=== PATIENT | female | born 1970 | race Hispanic/Latino ===

== ENCOUNTER 2017-10-18 03:28 | Outpatient (CLI) | payer OTHER | END 2017-10-18 03:29 | disposition home or self-care (01) | LOC: BICMRI 03:28 | PROVIDERS: ATTEND Specialist | DX: M54.2 Cervicalgia (principal); M47.892 Other spondylosis, cervical region; M25.78 Osteophyte, vertebrae; M50.20 Other cervical disc displacement, unspecified cervical region | CPT/HCPCS: 72141 ==

== ENCOUNTER 2019-02-12 18:32 | Emergency (ER) | payer SELFPAY ==
[2019-02-12] MEDS ORDERED: Ketorolac Tromethamine 60 MG/2 ML VIAL ONE (20:16)
--- NOTE | 2019-02-12 20:43 | CT ---
FExam: CT thoracic spine without contrast Provided clinical history: Back pain FINDINGS: Thoracic alignment appears normal. Vertebral body heights appear preserved. Thoracic disc degenerativ e changes are seen. No paravertebral soft tissue abnormality is evident. IMPRESSION: No evidence for fracture or subluxation.
--- NOTE | 2019-02-12 21:00 | CT ---
CERVICAL SPINE CT WITHOUT CONTRAST: History: Pain. Comparison: None. FINDINGS: No craniocervical disassociation. Intact odontoid process. Lateral masses of C1 and C2 articulate anabel ropriately. Cervical spine vertebral body height is maintained. No fracture. Soft tissue neck structures are unremarkable. No retropharyngeal or prevertebral soft tissue swelling . Upper mediastinum and lung apices are unremarkable. Limited evaluation of the contents of the central spinal canal and neural foramina due to technique. C2-3: No significant central canal stenosis or foraminal narrowing. C3-4: Minimal broad based disc bulge without significant central canal stenosis or foraminal narrowin g. C4-5: Broad based disc bulge without significant central canal stenosis. Neural foramina are patent. C5-6: There is a central/left paracentral disc bulge. There is at least mild central canal stenosis. Mild bilateral foraminal narrowing. e C6-7: No significant central canal stenosis or foraminal narrowing. C7-T1: No significant central canal stenosis or foraminal narrowing. IMPRESSION: Degenerative disc disease at C5-6. Better interrogation with a cervical spine MRI is recommended on a non-emergent basis. POS: PPP
== END 2019-02-12 21:12 | disposition home or self-care (01) ==
LOC: ERS 18:32
DX: M48.02 Spinal stenosis, cervical region (principal); M62.830 Muscle spasm of back
CPT/HCPCS: 72125; 72128; 96372; J1885

== ENCOUNTER 2019-03-29 12:03 | Outpatient (CLI) | payer BC ==
--- NOTE | 2019-03-29 15:10 | MRI ---
THORACIC SPINE MRI NONCONTRAST: INDICATION: Thoracic spine pain. FINDINGS: Vertebral body heights and alignment are maintained. No acute compression fracture or marrow edema. Disk space heights are relatively well preserved. Intrinsic T1 hyperintensity is seen within the lo w thoracic spine indicates interosseous hemangioma. At the T1-2 level, there is a mild disk bulge with effacement of the ventral thecal sac. Slight vent ral cord effacement without direct cord contact noted. Otherwise, within the thoracic spine levels, there is no significant central canal or neural foramina l stenosis. There is a mild anterior, chronic wedge deformity involving the T5 vertebral segment with slight ante rior height loss. This is at site of mild focal kyphosis. Evaluation of the thoracic spinal cord reveals appropriate caliber and signal intensity. Incidental note of a small T2 hyperintensity of the right kidney which is incompletely visualized on the basis of this exam. The visualized transverse diameters are approximately 9 mm. No acute paraspinal soft tissue edema. IMPRESSION: 1. Mild disk bulge at T1-2 with slight effacement of the ventral aspect of the thoracic spinal cord without significant cord deformity, or obvious intramedullary signal alteration. 2. Mild chronic anterior height loss of T5 vertebral body. 3. Intraosseous hemangioma of T10 vertebral body. 4. Small, subcentimeter partially imaged T2 hyperintensity of the right kidney. Consider followup w ith renal ultrasound as a conservative measure to fully visualize this finding. POS: TPC
== END 2019-03-29 12:04 | disposition home or self-care (01) ==
LOC: BICMRI 12:03
PROVIDERS: ATTEND Psychiatry & Neurology Neurology
DX: M54.6 Pain in thoracic spine (principal); M51.24 Other intervertebral disc displacement, thoracic region; D18.09 Hemangioma of other sites
CPT/HCPCS: 72146

== ENCOUNTER 2019-04-02 01:19 | Outpatient (CLI) | payer BC ==
[2019-04-02 17:44] LABS: #Eosinphils 0.1 thou/uL (0.0-0.7); #Lymphocytes 2.6 thou/uL (1.20-3.40); #Monocytes 0.4 thou/uL (0.11-0.59); #Neutrophils 4.5 thou/uL (1.40-6.50); %Basophils 0.6 % (0.0-1.0); %Eosinophils 1.4 % (0.0-10.0); %Lymphocytes 33.6 % (21.0-51.0); %Monocytes 5.5 % (0.0-10.0); %Neutrophils 58.9 % (42.0-75.0); Hemoglobin 11.2 g/dL (12.0-16.0); Mean Corpuscular HGB CONC 32.6 g/dL (32.0-36.0); Mean Corpuscular Hemoglobin 24.8 pg (27.0-31.0); Mean Corpuscular Volume 76.2 fL (78.0-98.0); Mean Platelet Volume 8.9 fL (7.4-10.4); Platelet Count 284 thou/uL (130-400); RBC Distribution Width 14.9 % (11.5-14.5); Red Blood Cell (RBC) Count 4.52 mill/uL (4.20-5.40); White Blood Cell (WBC) Count 7.7 thou/uL (4.8-10.8)
== END 2019-04-02 01:20 | disposition home or self-care (01) ==
LOC: LABBT 01:19
PROVIDERS: ATTEND Orthopaedic Surgery
DX: Z01.812 Encounter for preprocedural laboratory examination (principal); G56.01 Carpal tunnel syndrome, right upper limb

== ENCOUNTER 2019-04-04 08:00 | Day surgery (SDC) | payer BC ==
[2019-04-02 17:53] VITALS: BMI 30.3
[2019-04-04] MEDS ORDERED: Lidocaine 1% (PF) 30 ML VIAL ONE (09:16)
[2019-04-04] MEDS ORDERED: Fentanyl 100 MCG/2 ML VIAL ONE (09:27)
--- NOTE | 2019-04-04 13:51 | OP ---
DATE OF PROCEDURE: 04/04/2019 PREOPERATIVE DIAGNOSIS: Right carpal tunnel syndrome. POSTOPERATIVE DIAGNOSIS: Right carpal tunnel syndrome. PROCEDURE PERFORMED: 1. Right open carpal tunnel release. 2. Placement of short-arm splint, right upper extremity. CORPORATE TRAVEL COUNSELOR: None. BLOOD LOSS: Minimal. COMPLICATIONS: None. ANESTHESIA: She did have a general anesthetic. DISPOSITION: She went to recovery in stable condition. INDICATIONS: A 48-year-old female, who comes in with an EMG/NCV confirming [id number] carpal tunnel syndrome on the right side. At this time, she is willing to have surgical release of the nerve. DESCRIPTION OF PROCEDURE: After all appropriate consent forms were explained and signed, the patient was taken back to the operating room and at this time was given IV sedation. A well-padded tourniquet was placed on the right arm and the arm was then prepped and draped in the standard surgical fashion. The incision was then drawn out and infiltrated with plain lidocaine. Limb was exsanguinated and tourniquet taken up to 250 mmHg. At this time, using Loupe magnification, a 15 blade was used to incise down through skin. Bipolar cautery was used to coagulate any brisk venous bleeding. We then placed a small hemostat to protect the underlying median nerve and transected the transverse carpal ligament using multiple 15 blades as well as scissors. Once this was done, a small finger was inserted to palpate for any remaining bands. At this time, a moist Ray-Dashawn sponge was placed into the wound. Tourniquet was let down and pressure was held. Bipolar cautery used to coagulate any brisk venous bleeding. The wound was then irrigated with saline solution and we then evaluated the nerve. The nerve was found to be significantly injected, the nerve was intact, there were no masses noted, and the underlying flexor tendons were in good condition. At this time, we irrigated and dried the wound. We then placed multiple nylon stitches to close the incision. A bulky sterile hand dressing and a small volar splint were then placed. The patient was then awakened and taken to recovery in stable condition. All counts were correct at the end of the case. The patient received preoperative IV antibiotics. Job ID: [id number]
[2019-04-04] MEDS ORDERED: Ondansetron PF 4 MG/2 ML Vial ONE (15:26)
[2019-04-04] MEDS ORDERED: Succinylcholine Chloride 20 MG/ML 10 ml SYRINGE FS ONE (15:26)
[2019-04-04] MEDS ORDERED: Dexamethasone 20 MG/5 ML VIAL ONE (15:26)
[2019-04-04] MEDS ORDERED: PROPOFOL 200 MG/20 ML VIAL ONE (15:26)
== END 2019-04-04 11:35 | disposition home or self-care (01) ==
LOC: SDC 08:00
PROVIDERS: ATTEND Orthopaedic Surgery
PROC: 01N50ZZ Release Median Nerve, Open Approach (ICD-10-PCS; principal; 2019-04-04)
DX: G56.03 Carpal tunnel syndrome, bilateral upper limbs (principal); Z79.899 Other long term (current) drug therapy
CPT/HCPCS: J0690; J1100; J2001; J2405; J2704; J3010

== ENCOUNTER 2019-06-06 15:38 | Outpatient (CLI) | payer BC ==
--- NOTE | 2019-06-06 16:44 | MMO ---
Bilateral MAMMO Bilat Screen [facility]. CLINICAL HISTORY: Patient is 49 years old and is seen for screening. The patient has no family history of breast cancer. The patient has no personal history of cancer. VIEWS: The views performed were: bilateral craniocaudal with tomosynthesis; bilateral mediolateral oblique with tomosynthesis; and left mediolateral oblique. FILMS COMPARED: The present examination has been compared to prior imaging studies performed at [facility] on 02/15/2014, 03/10/2015, 04/20/2016 and 04/28/2017. MAMMOGRAM FINDINGS: There are scattered fibroglandular densities. There are no suspicious masses, suspicious calcifications, or new areas of architectural distortion. IMPRESSION: THERE IS NO MAMMOGRAPHIC EVIDENCE OF MALIGNANCY. A ROUTINE FOLLOW-UP MAMMOGRAM IN 1 YEAR IS RECOMMENDED. THE RESULTS OF THIS EXAM WERE SENT TO THE PATIENT. ACR BI-RADS Category 1 - Negative MAMMOGRAPHY NOTE: 1. A negative mammogram report should not delay a biopsy if a dominant of clinically suspicious mass is present. 2. Approximately 10% to 15% of breast cancers are not detected by mammography. 3. Adenosis and dense breasts may obscure an underlying neoplasm. Reported by: KUNAL MUELLER MD Electonically Signed: [id number]
== END 2019-06-06 15:39 | disposition home or self-care (01) ==
LOC: BICMAMMO 15:38
PROVIDERS: ATTEND Nurse Practitioner Family
DX: Z12.31 Encounter for screening mammogram for malignant neoplasm of breast (principal)
CPT/HCPCS: 77063; 77067

== ENCOUNTER 2019-07-13 07:36 | Day surgery (SDC) | payer BC ==
[2019-07-09 14:21] VITALS: BMI 30.2
[2019-07-13] MEDS ORDERED: PROPOFOL 200 MG/20 ML VIAL ONE (09:15)
[2019-07-13] MEDS ORDERED: Lidocaine 1% (PF) 30 ML VIAL ONE (10:00)
[2019-07-13] MEDS ORDERED: Clindamycin/D5W 600 mg/50 ml Premix Bag ONE (10:05)
[2019-07-13] MEDS ORDERED: Propofol 500 MG/50 ML VIAL ONE (10:22)
[2019-07-13] MEDS ORDERED: Fentanyl 100 MCG/2 ML VIAL ONE (10:29)
[2019-07-13] MEDS ORDERED: HYDROcodone/Acetaminophen 5/325 mg Tablet ONE (12:33)
--- NOTE | 2019-07-13 12:40 | OP ---
DATE OF PROCEDURE: 07/13/2019 PREOPERATIVE DIAGNOSIS: Left carpal tunnel syndrome. POSTOPERATIVE DIAGNOSIS: Left carpal tunnel syndrome. PROCEDURES PERFORMED: 1. Left open carpal tunnel release. 2. Placement of short volar splint, left upper extremity. CAREERS ADVISER: None. ESTIMATED BLOOD LOSS: Minimal. COMPLICATIONS: None. ANESTHESIA: She did have a TIVA with local. DISPOSITION: She went to recovery room in stable condition. INDICATION: This is a 49-year-old female, who has had previous right carpal tunnel release performed. At this time, she wished to have her left side release as well. DESCRIPTION OF PROCEDURE: After all appropriate consent forms were explained and signed, the patient was taken back to the operating room and at this time was given IV sedation. A well-padded tourniquet was placed on the left arm and the arm was then prepped and draped in the standard surgical fashion. The incision was then drawn out and infiltrated with plain lidocaine. Limb was exsanguinated and tourniquet taken up to 250 mmHg. At this time, using Loupe magnification, a 15 blade was used to incise down through skin. Bipolar cautery was used to coagulate any brisk venous bleeding. We then placed a small hemostat to protect the underlying median nerve and transected the transverse carpal ligament using multiple 15 blades as well as scissors. Once this was done, a small finger was inserted to palpate for any remaining bands. At this time, a moist Ray-Dashawn sponge was placed into the wound. Tourniquet was let down and pressure was held. Bipolar cautery used to coagulate any brisk venous bleeding. The wound was then irrigated with saline solution and we then evaluated the nerve. The nerve was found to be significantly injected, the nerve was intact, there were no masses noted, and the underlying flexor tendons were in good condition. At this time, we irrigated and dried the wound. We then placed multiple nylon stitches to close the incision. A bulky sterile hand dressing and a small volar splint were then placed. The patient was then awakened and taken to recovery in stable condition. All counts were correct at the end of the case. The patient received preoperative IV antibiotics. Job ID: [id number]
== END 2019-07-13 13:05 | disposition home or self-care (01) ==
LOC: SDC 07:36
PROVIDERS: ATTEND Orthopaedic Surgery
PROC: 01N50ZZ Release Median Nerve, Open Approach (ICD-10-PCS; principal; 2019-07-13)
DX: G56.02 Carpal tunnel syndrome, left upper limb (principal); Z79.899 Other long term (current) drug therapy; Z88.1 Allergy status to other antibiotic agents; Z88.5 Allergy status to narcotic agent; Z98.890 Other specified postprocedural states
CPT/HCPCS: J2001; J2704; J3010; J3490

== ENCOUNTER 2022-03-16 23:02 | Emergency (ER) | payer BC ==
[2022-03-16 23:41] LABS: #Basophils 0.1 thou/uL (0.0-0.2); #Lymphocytes 1.3 thou/uL (1.20-3.40); #Monocytes 0.3 thou/uL (0.11-0.59); %Basophils 0.7 % (0.0-1.0); %Eosinophils 0.2 % (0.0-10.0); %Lymphocytes 17.1 % (21.0-51.0); %Monocytes 3.4 % (0.0-10.0); %Neutrophils 78.7 % (42.0-75.0); Hemoglobin 13.5 g/dL (12.0-16.0); Mean Corpuscular HGB CONC 32.8 g/dL (32.0-36.0); Mean Corpuscular Hemoglobin 29.8 pg (27.0-31.0); Mean Corpuscular Volume 90.9 fL (78.0-98.0); Mean Platelet Volume 7.3 fL (7.4-10.4); Platelet Count 277 thou/uL (130-400); Red Blood Cell (RBC) Count 4.51 mill/uL (4.20-5.40); White Blood Cell (WBC) Count 7.6 thou/uL (4.8-10.8)
[2022-03-16] MEDS ORDERED: Ondansetron PF 4 MG/2 ML Vial ONE (23:41)
[2022-03-16] MEDS ORDERED: Acetaminophen 500 MG TAB ONE (23:41)
[2022-03-17 00:02] LABS: Pregnancy Test - Urine (BHCG) Negative (Negative); Pregu Control Background? CLEAR/WHITE (CLR/WHITE); Pregu Control Bar Appear? YES (CONTROL BAR); Specific Gravity 1.005 (1.002-1.036)
[2022-03-17 00:03] LABS: Bacteria/HPF 1+ HPF (None Seen); Bilirubin Negative (Negative); Blood, Urine Trace (Negative); Clarity Clear (Clear); Glucose, Urine (Dipstick) Normal (Negative); Ketone, Urine Negative (Negative); Leukocyte Negative Leu/uL (Negative); Nitrite Negative (Negative); Protein, Urine (Dipstick) Negative (Neg-Trace); RBC/HPF 0-3 HPF (0-3); Specific Gravity, Urine 1.006 (1.002-1.036); Squamous Epithelial 0-3 HPF (0-3); Urobilinogen Normal mg/dL (Less than 2); WBC/HPF 0-3 HPF (0-3)
[2022-03-17 00:04] LABS: ALT (SGPT) 31 U/L (8-55); AST (SGOT) 22 U/L (5-34); Albumin 3.9 g/dL (3.5-5.0); Alkaline Phosphatase 96 U/L (40-110); Anion Gap 14 mmol/L (10-20); BUN (Urea Nitrogen) 13 mg/dL (7.0-18.7); Calc. Creatinine Clearance 0 mL/min (70-130); Calcium 9.3 mg/dL (7.8-10.44); Chloride 101 mmol/L (98-107); Globulin 3.4 g/dL (2.4-3.5); Glucose 117 mg/dL (70-105); Lipase 36 U/L (8-78); Magnesium 1.9 mg/dL (1.6-2.6); Potassium 3.5 mmol/L (3.5-5.1); Protein, Total 7.3 g/dL (6.0-8.3)
[2022-03-17 00:05] LABS: Bilirubin, Total 0.5 mg/dL (0.2-1.2); Carbon Dioxide 25 mmol/L (22-29); Sodium 136 mmol/L (136-145)
[2022-03-17] MEDS ORDERED: Ketorolac Tromethamine 30 MG/ML VIAL ONE (00:16)
== END 2022-03-17 00:59 | disposition home or self-care (01) ==
LOC: ERS 23:02
DX: B34.9 Viral infection, unspecified (principal); R31.9 Hematuria, unspecified
CPT/HCPCS: 71045; 80053; 81003; 81015; 81025; 83690; 83735; 84484; 85025; 87804; 93005; 96374; 96375; J1885; J2405

== ENCOUNTER 2022-06-07 01:13 | Emergency (ER) | payer SELFPAY | END 2022-06-07 05:46 | disposition home or self-care (01) | LOC: ERS 01:13 | DX: F10.129 Alcohol abuse with intoxication, unspecified (principal); M25.561 Pain in right knee | CPT/HCPCS: 96360; 96361 ==

== ENCOUNTER 2023-12-21 08:26 | Outpatient (CLI) | payer OTHER | END 2023-12-21 08:27 | disposition home or self-care (01) | LOC: ULT 08:26 | PROVIDERS: ATTEND Orthopaedic Surgery | DX: M25.561 Pain in right knee (principal) ==

== ENCOUNTER 2024-01-02 12:29 | Outpatient (CLI) | payer OTHER | END 2024-01-02 12:30 | disposition home or self-care (01) | LOC: BICMRI 12:29 | PROVIDERS: ATTEND Orthopaedic Surgery | DX: M25.561 Pain in right knee (principal); S83.241A Other tear of medial meniscus, current injury, right knee, initial encounter ==

== ENCOUNTER 2024-01-06 08:24 | Outpatient (CLI) | payer OTHER | END 2024-01-06 08:25 | disposition home or self-care (01) | LOC: BICMAMMO 08:24 | PROVIDERS: ATTEND Nurse Practitioner Family | DX: Z12.31 Encounter for screening mammogram for malignant neoplasm of breast (principal) | CPT/HCPCS: 77063; 77067 ==